=== PATIENT | male | born 1990 ===

== ENCOUNTER 2018-11-15 02:59 | Emergency (ER) | payer OTHER ==
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
[2018-11-15] MEDS: Iopamidol 755 Mg/ML 100 ML Bottle IVPUSH ONE (03:58)
[2018-11-15] MEDS: Lactated Ringers 1,000 ML IV SCH (04:06)
[2018-11-15 04:22] LABS: CHLORIDE,CL 103 mEq/L (98-106); SODIUM,NA 137 mEq/L (136-145)
== END 2018-11-15 06:20 | disposition home or self-care (01) ==
LOC: CC.ED 02:59
DX: S29.012A Strain of muscle and tendon of back wall of thorax, initial encounter (principal); F32.9 Major depressive disorder, single episode, unspecified; F90.9 Attention-deficit hyperactivity disorder, unspecified type; Z88.2 Allergy status to sulfonamides; Z79.899 Other long term (current) drug therapy; V89.2XXA Person injured in unspecified motor-vehicle accident, traffic, initial encounter
CPT/HCPCS: 36415; 70450; 71260; 72125; 74177; 80053; 80305-QW; 81001; 82150; 85025; 86140; 96365; 96366; 99285-25; J7120; Q9967